=== PATIENT | female | born 2000 | race Hispanic/Latino ===

== ENCOUNTER 2024-02-23 00:01 | Inpatient (IN) | payer OTHER ==
[~2024-02-23] VITALS: Ht 165.1 cm; Wt 90.7 kg
[~2024-02-23 00:01] MED LIST: CALCIUM CARBONATE 500 MG CHEW PO PRN; LACTATED RINGER'S 1,000 ML IV SCH; MAGNESIUM HYDROXIDE/AL HYDROX 30 ML CUP PO PRN; miSOPROStoL 25 MCG TAB PV SCH
[2024-02-23] MEDS ORDERED: OXYTOCIN/DEXTROSE 5% 20 UNITS/100 ML BAG IV SCH (00:15)
[2024-02-23] MEDS ORDERED: LACTATED RINGER'S 1,000 ML IV PRN (00:15)
[2024-02-23 00:29] LABS: HEMATOCRIT 40.4 % (35.0-50.0); HEMOGLOBIN 13.8 g/dL (12.0-18.0); MCH 30.8 (27-36); MCHC 34.1 g/dl (30-36); MCV 90.4 fl (81-99); RBC 4.47 M/ul (4.3-5.7); RDW 13.5 (10.5-15.0)
[2024-02-23 00:39] LABS: AMPHETAMINES, URINE NEGATIVE (NEGATIVE); BARBITURATES, URINE NEGATIVE (NEGATIVE); BENZODIAZEPINE, URINE NEGATIVE (NEGATIVE); BUPRENORPHINE, URINE NEGATIVE (NEGATIVE); CANNABINOID, URINE NEGATIVE (NEGATIVE); COCAINE, URINE NEGATIVE (NEGATIVE); ECSTASY, URINE NEGATIVE (NEGATIVE); FENTANYL, URINE NEGATIVE (NEGATIVE); METHADONE, URINE NEGATIVE (NEGATIVE); OPIATES, URINE NEGATIVE (NEGATIVE); OXYCODONE, URINE NEGATIVE (NEGATIVE); PHENCYCLIDINE, URINE NEGATIVE (NEGATIVE)
[2024-02-23 01:08] LABS: ALBUMIN 2.9 g/dL (3.4-5.0); ALBUMIN/GLOBULIN RATIO 0.71 (1.1-2.4); BILIRUBIN, TOTAL 0.6 ng/dL (0.2-1.0); BUN/CREATININE RATIO 13.75 (6.0-28.6); CALCIUM 9.1 mg/dL (8.5-10.1); CREATININE, SERUM 0.8 mg/dL (0.55-1.02)
[2024-02-23 01:11] LABS: CREATININE, RANDOM URINE 128.2 mg/dL (NOT ESTABLISHED); PROTEIN/CREATININE RATIO 0.17 mg/mg (0.010-0.107)
[2024-02-23 01:35] LABS: ABO B; ANTIBODY SCREEN NEGATIVE; RH POSITIVE
[2024-02-23] MEDS ORDERED: fentaNYL citrate 100 MCG/2 ML VIAL ONE (08:52)
[2024-02-23] MEDS ORDERED: ROPIVACAINE 0.2% 200 ML BAG ONE (08:52)
[2024-02-23] MEDS ORDERED: LABETALOL HCL 200 MG TAB PO SCH (09:00)
[2024-02-23] MEDS ORDERED: ROPIVACAINE 0.2% 200 ML BAG EPIDURAL SCH (09:30)
[2024-02-23] MEDS ORDERED: LACTATED RINGER'S 500 ML IV PRN (09:30)
[2024-02-23] MEDS ORDERED: LACTATED RINGER'S 2,000 ML IV ONE (09:30)
[2024-02-23] MEDS ORDERED: ePHEDrine sulfate 5 MG/ML SYRINGE IV PRN (09:30)
[2024-02-23] MEDS ORDERED: OXYCODONE HCL 5 MG TAB PO PRN (15:30)
[2024-02-23] MEDS ORDERED: MAGNESIUM HYDROXIDE 30 ML UDC PO PRN (15:30)
[2024-02-23] MEDS ORDERED: MEASLES,MUMPS&RUBELLA VACCINE 1 VIAL VIAL SUB-Q SCH (15:30)
[2024-02-23] MEDS ORDERED: BENZOCAINE 60 ML AEROSOL TOP PRN (15:30)
[2024-02-23] MEDS ORDERED: OXYCODONE/APAP 5/325 TAB PO PRN (15:30)
[2024-02-23] MEDS ORDERED: MAGNESIUM HYDROXIDE/AL HYDROX 30 ML CUP PO PRN (15:30)
[2024-02-23] MEDS ORDERED: ACETAMINOPHEN 325 MG TAB PO PRN (15:30)
[2024-02-23] MEDS ORDERED: WITCH HAZEL/GLYCERIN 1 EA PAD TOP PRN (15:30)
[2024-02-23] MEDS ORDERED: OXYTOCIN/0.9 % SODIUM CHLORIDE 500 ML IV SCH (15:30)
[2024-02-23] MEDS ORDERED: CALCIUM CARBONATE 500 MG CHEW PO PRN (15:30)
[2024-02-23] MEDS ORDERED: HYDROCODONE/ACETA 5/325 TAB PO PRN (15:30)
[2024-02-23] MEDS ORDERED: HYDROCORTISONE ACETATE 25 MG SUPP PR PRN (15:30)
[2024-02-23] MEDS ORDERED: IBUPROFEN 600 MG TAB PO PRN (15:30)
[2024-02-23] MEDS ORDERED: FERROUS SULFATE 325 MG TAB PO SCH (17:00)
[2024-02-23 19:45] VITALS: BP 153/81
[2024-02-23] MEDS ORDERED: SENNOSIDES/DOCUSATE 1 EA TAB PO SCH (21:00)
[2024-02-24 05:58] LABS: HEMATOCRIT 38.8 % (35.0-50.0); HEMOGLOBIN 13.1 g/dL (12.0-18.0); MCH 30.8 (27-36); MCHC 33.8 g/dl (30-36); MCV 91.2 fl (81-99); RBC 4.25 M/ul (4.3-5.7); RDW 13.3 (10.5-15.0)
--- NOTE | 2024-02-24 09:55 | PR ---
[facility] [address] [place], [place] [address] Signed PP Progress Notes Datetime Report Generated by CPN: 02/24/2024 09:55 SUBJECTIVE: [id number] Pain: Within Normal Limits Nausea/Vomiting: Denies Flatus: Yes Bowel Movement: No Vital Signs: [id number] Vital Signs: Reviewed; Within Normal Limits Cardiovascular: Normal Respiratory: Normal Abdomen/Uterus: Normal Lochia: Normal Vulva/Perineum: Not Done Breasts: Not Done CVA Tenderness: Normal Extremities: Normal Incision: Not Applicable Progress: Normal Exam Comments: Fundus firm U-2 nontender IMPRESSION/PLAN/PROCEDURES: [id number] Impression: Normal Progression Plan: Continue Present Management Progress Notes: Pt seen and examined. Doing well. BPs well controlled w/ chronic antihypertensives. Ambulating, voiding, and tolerating full diet. Pain and lochia minimal. well. No fever/chill or other concerns. Desires d/c home tomorrow. Signing Physician: Mansi Vanessa DO Copies: ~ *Electronically Signed* 02/24/24 0955 MANSI VANESSA (KATIE) DO PATIENT NAME: ANT EATON PROGRESS NOTE DATE OF : 01 PHYSICIAN: MANSI VANESSA (KATIE) DO RPT #: [id number] REPORT IS CONFIDENTIAL AND NOT TO BE RELEASED WITHOUT AUTHORIZATION
[2024-02-25 08:22] VITALS: BP 125/80
--- NOTE | 2024-02-25 08:49 | PR ---
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 Doing well. Ambulating, voiding, and tolerating full diet. Pain and lochia minimal. well. BPs well controlled on longstanding labetalol doseage. Desires d/c home. Planning Phexxi for pp contraception Signing Physician: Mansi Vanessa DO Copies: ~ *Electronically Signed* 02/25/24 0849 MANSI VANESSA (KATIE) DO PATIENT NAME: ANT EATON PROGRESS NOTE DATE OF : 01 PHYSICIAN: MANSI VANESSA) DO RPT #: [id number] REPORT IS CONFIDENTIAL AND NOT TO BE RELEASED WITHOUT AUTHORIZATION
== END 2024-02-25 11:50 | disposition home or self-care (01) | DRG 807 ==
LOC: FBC 00:01
PROVIDERS: ADMIT Obstetrics & Gynecology; ATTEND Obstetrics & Gynecology
PROC: 10E0XZZ Delivery of Products of Conception, External Approach (ICD-10-PCS; principal; 2024-02-23)
PROC: 10907ZC Drainage of Amniotic Fluid, Therapeutic from Products of Conception, Via Natural or Artificial Opening (ICD-10-PCS; 2024-02-23)
PROC: 3E0R3BZ Introduction of Anesthetic Agent into Spinal Canal, Percutaneous Approach (ICD-10-PCS; 2024-02-23)
PROC: 00HU33Z Insertion of Infusion Device into Spinal Canal, Percutaneous Approach (ICD-10-PCS; 2024-02-23)
DX: O10.92 Unspecified pre-existing hypertension complicating childbirth (principal); Z37.0 Single live birth; O70.0 First degree perineal laceration during delivery; Z98.890 Other specified postprocedural states; O99.892 Other specified diseases and conditions complicating childbirth; H02.402 Unspecified ptosis of left eyelid; H40.9 Unspecified glaucoma; Z79.82 Long term (current) use of aspirin; Z79.899 Other long term (current) drug therapy; Z3A.39 39 weeks gestation of pregnancy
CPT/HCPCS: 01960; 36415; 80053; 80307; 82565; 82570; 84156; 84550; 85027; 86850; 86900; 86901; 90707; A9270; J2590; J2795; J3010; J7121